=== PATIENT | female | born 1985 | race African-American/Black ===

== ENCOUNTER → 2017-10-11 09:12 | Outpatient (CLI) | payer OTHER, SELFPAY ==
[2017-10-11 11:04] LABS: Estradiol 123.5 pg/mL; Follicle Stimulating Hormone 5.6 mIU/mL; Luteinizing Hormone 4.6 mIU/mL; Prolactin 8.3 ng/mL; T4 Free Direct 0.93 ng/dL (0.76-1.46); Thyroid Stim Hormone (TSH) 2.92 uIU/mL (0.358-3.74)
[2017-10-14 11:33] LABS: 17-Hydroxyprogesterone 20 ng/dL (.)
[2017-10-15 14:08] LABS: DHEA Sulfate 182.6 ug/dL (84.8-378.0); Testosterone, % Free 1.66 % (0.50-2.80); Testosterone, Free 0.46 ng/dL (0.10-0.85); Testosterone, Total 28 ng/dL (8-48); Thyroid Peroxidase AB 125 IU/mL (0-34)
[2017-10-17 07:58] LABS: Adrenocorticotropic Hormone 13.8 pg/mL (7.2-63.3); Androstenedione 67 ng/dL (41-262); Renin, Plasma 1.259 ng/mL/hr (0.167-5.380); Sex Hormone-binding Globulin 160.9 nmol/L (24.6-122.0)
== END ==
DX: E03.9 Hypothyroidism, unspecified (principal); E22.1 Hyperprolactinemia; E55.9 Vitamin D deficiency, unspecified
CPT/HCPCS: 36415; 82024; 82157; 82306; 82533; 82627; 82670; 83001; 83002; 83498; 84146; 84244; 84270; 84402; 84403; 84439; 84443; 86376; 82626

== ENCOUNTER → 2018-04-28 15:24 | Outpatient (CLI) | payer OTHER, SELFPAY ==
[2018-04-28 16:09] LABS: hCG Titer Quant., Serum 6406 mIU/mL (<9 non-preg)
== END ==
PROVIDERS: Visit Provider Obstetrics & Gynecology
DX: R10.9 Unspecified abdominal pain (principal)
CPT/HCPCS: 36415; 84702

== ENCOUNTER → 2018-10-26 14:54 | Outpatient (CLI) | payer OTHER, SELFPAY | PROVIDERS: Visit Provider Obstetrics & Gynecology | DX: R50.9 Fever, unspecified (principal) | CPT/HCPCS: 87804 ==

== ENCOUNTER → 2019-04-09 | Outpatient (CLI) | payer OTHER, SELFPAY ==
[2019-04-09 16:42] LABS: Free T3 6.2 pg/mL (2.18-3.98); T4 Free Direct 1.98 ng/dL (0.76-1.46); Thyroid Stim Hormone (TSH) < 0.01 uIU/mL (0.358-3.74)
== END | disposition home or self-care (01) ==
LOC: WOBLAB 15:04
PROVIDERS: Visit Provider Obstetrics & Gynecology
DX: E03.9 Hypothyroidism, unspecified (principal)
CPT/HCPCS: 36415; 84439; 84443; 84481

== ENCOUNTER → 2019-11-01 12:04 | Outpatient (CLI) | payer OTHER, SELFPAY | PROVIDERS: Visit Provider Obstetrics & Gynecology | DX: B34.9 Viral infection, unspecified (principal); R05 Cough | CPT/HCPCS: 87804 ==